=== PATIENT | female | born 1960 | race Caucasian/White ===

== ENCOUNTER → 2016-07-29 | Day surgery (SDC) | payer OTHER ==
[2016-07-28 15:38] VITALS: BMI 33.0
[~2016-07-29] VITALS: Ht 167.6 cm; Wt 93.6 kg
[~2016-07-29] MED LIST: CETI10TA84 PO; DIPH-416 PO; ESOM20CA PO; HYOS0.1255 PO; LIDOCAINE HCL 2% 2 ML VIAL (20MG/ML) ONE; MULT-506 PO; ONDANSETRON INJ 2 MG/ML 2 ML VIAL IV PRN; PROPOFOL IV EMULSION 10 MG/ML 20 ML VIAL IV ONE; SOLI10TA2 PO; TRAZ100T29 PO; VNTHFA/IN INH
[2016-07-29 10:11] VITALS: Ht 167.6 cm; Wt 93.6 kg
[2016-07-29 10:19] VITALS: TEMP 36.6
--- NOTE | 2016-07-29 10:33 | Endo History and Physical ---
History & Physical Date of Service: Jul 29, 2016. Chief Complaint: Family Hx colon Ca Referring Physician: Dr. Sharpe History of Present Illness Family history of colon cancer (father close to age 60) for a screening colonoscopy today. Past Surgical History Hx Cardiac Surgery: No Hx Internal Defibrillator: No Hx Pacemaker: No Hx Abdominal Surgery: Yes (D&E) Hx of Implantable Prosthesis: No Hx Post-Op Nausea and Vomiting: No Hx Cancer Surgery: No Hx Thoracic Surgery: No Hx Orthopedic: No Hx Urinary Tract Surgery: No Family History Colon CA Social History Smoking Status: Never Smoker Hx Substance Use: No Hx Alcohol Use: Yes (SOCIAL) Allergies Coded Allergies: Flu Virus Vaccine (Verified Allergy, Severe, RASH AND DIFFICULTY BREATHING , 07/28/16) Latex1 -Allergic Contact Dermititis (Verified Allergy, Unknown, REDNESS AND RASH, 07/28/16) Uncoded Allergies: RUM- HIVES (Allergy, Unknown, 08/17/02) Current Medications Reported Home Medications Medications Dose Route/Sig Max Daily Dose Days Date Category Nexium (Esomeprazole Magnesium) 20 Mg Capcr 2 Tab PO QAM 07/28/16 Reported Multivitamin (Multivitamins) Tab 1 Tab PO DAILY 07/28/16 Reported Ventolin Hfa (Albuterol) 200 Puffs/16797 Mcg Aers 2-4 Puffs INH Q6H PRN 07/28/16 Reported Zyrtec (Cetirizine HCl) 10 Mg Tab 10 Mg PO DAILY PRN 07/28/16 Reported Lomotil (Diphenoxylate HCl/Atropine) Tab 1 Tab PO UD PRN 07/28/16 Reported Levsin (Hyoscyamine Sulfate) 0.125 Mg Tab 0.125 Mg PO PRN PRN 07/28/16 Reported Trazodone (Trazodone HCl) 100 Mg Tab 150 Mg PO HS 07/28/16 Reported Vesicare (Solifenacin) 10 Mg Tab 10 Mg PO QAM 07/28/16 Reported Vital Signs Weight (Kilograms): 93.64 Height (Feet): 5 Height (Inches): 6 Date Time Temp Pulse Resp B/P Pulse Ox O2 Delivery O2 Flow Rate FiO2 07/29/16 10:19 36.6 83 18 120/71 97 Room Air Physical Exam General Appearance: no apparent distress Respiratory/Chest: Auscultation: breath sounds normal Cardiovascular: Heart Auscultation: RRR Abdomen: Inspection & Palpation: soft Assessment and Plan Evaluation for colon polyps in a patient with a 1st degree relative with colon cancer around age 60. We have discussed the risks to include bleeding, infection , perforation, pain, missed polyps, and aspiration.
--- NOTE | 2016-07-29 11:01 | Discharge Instructions ---
Endoscopy Patient Instructions Date / Procedure(s) Performed Jul 29, 2016. Colonoscopy Allergy Information Coded Allergies: Flu Virus Vaccine (Verified Allergy, Severe, RASH AND DIFFICULTY BREATHING , 07/28/16) Latex1 -Allergic Contact Dermititis (Verified Allergy, Unknown, REDNESS AND RASH, 07/28/16) Uncoded Allergies: RUM- HIVES (Allergy, Unknown, 08/17/02) Discharge Date / Findings Jul 29, 2016. Internal Hemorrhoids Medication Instructions Reported Home Medications Medications Dose Route/Sig Max Daily Dose Days Date Category Nexium (Esomeprazole Magnesium) 20 Mg Capcr 2 Tab PO QAM 07/28/16 Reported Multivitamin (Multivitamins) Tab 1 Tab PO DAILY 07/28/16 Reported Ventolin Hfa (Albuterol) 200 Puffs/05012 Mcg Aers 2-4 Puffs INH Q6H PRN 07/28/16 Reported Zyrtec (Cetirizine HCl) 10 Mg Tab 10 Mg PO DAILY PRN 07/28/16 Reported Lomotil (Diphenoxylate HCl/Atropine) Tab 1 Tab PO UD PRN 07/28/16 Reported Levsin (Hyoscyamine Sulfate) 0.125 Mg Tab 0.125 Mg PO PRN PRN 07/28/16 Reported Trazodone (Trazodone HCl) 100 Mg Tab 150 Mg PO HS 07/28/16 Reported Vesicare (Solifenacin) 10 Mg Tab 10 Mg PO QAM 07/28/16 Reported Provider Instructions Activity Restrictions - No exercising or heavy lifting for 24 hours. - Do not drink alcohol the day of the procedure. - Do not drive a car or operate machinery until the day after the procedure. - Do not make any important decisions or sign important papers in 24 hours after the procedure. Following Day: - Return to full activity which may include returning to work/school. Diet Start your diet with liquids and light foods (jello, soup, juice, toast). Then eat your usual diet if not nauseated. Treatment For Common After Affects For mild abdominal pain, bloating, or excessive gas: - Rest - Eat lightly - Lie on right side Follow-Up Information Follow-up with Dr. Sharpe as scheduled Repeat colonoscopy in 5 years Anesthesia Information What You Should Know You have had a procedure that required some medicine to reduce anxiety and discomfort. This treatment is called moderate sedation. After receiving the treatment, you may be sleepy, but you will be able to breathe on your own. The effects of the treatment may last for several hours. Follow these instructions along with Activity/Diet recommendations noted above: * Do NOT do anything where dizziness or clumsiness would be dangerous. * Rest quietly at home today, then you can be up and about tomorrow. * Have a responsible person stay with you the rest of today. * You may have had an I.V. today. If so, you may take the dressing off later today. Recommendations Call your doctor if: * Trouble breathing * Continuous vomiting for more than 24 hours * Temperature above 101 degrees * Severe abdominal pain or bloating * Pain not relieved by pain medicine ordered * There is increased drainage or redness from any incision * A large amount of rectal bleeding greater than 2-3 tablespoons. (If you had a polyp/s removed or have hemorrhoids, a small amount of blood - from the rectum is to be expected.) * You have any unanswered questions or concerns. IN THE EVENT OF A SERIOUS EMERGENCY, GO TO THE NEAREST EMERGENCY ROOM Your discharge instructions were prepared by provider Karan Carter. Patient Instructions Signature Page Ileana Jimenez Patient (or Guardian) Signature/Date: I have read and understand the instructions given to me by my caregivers. Caregiver/RN/Doctor Signature/Date: The above-named patient and/or guardian has received patient instructions on this date. + Original Patient Signature Page (only) stays with chart. Please make copy for patient.
--- NOTE | 2016-07-29 11:01 | GI REPORT ---
Procedure Date: 07/29/2016 10:37 AM Procedure: Colonoscopy Indications: Screening in patient at increased risk: Family history of 1st-degree relative with colorectal cancer Medicines: Monitored Anesthesia Care Complications: No immediate complications. Estimated blood loss: Minimal. Estimated Blood Loss: Estimated blood loss was minimal. Procedure: Pre-Anesthesia Assessment: - Prior to the procedure, a History and Physical was performed, and patient medications, allergies and sensitivities were reviewed. The patient's tolerance of previous anesthesia was reviewed. - The risks and benefits of the procedure and the sedation options and risks were discussed with the patient. All questions were answered and informed consent was obtained. - Patient identification and proposed procedure were verified prior to the procedure by the physician, the nurse and the convalescent sitter. The procedure was verified in the procedure room. - Pre-procedure physical examination revealed no contraindications to sedation. - ASA Grade Assessment: II - A patient with mild systemic disease. - After reviewing the risks and benefits, the patient was deemed in satisfactory condition to undergo the procedure. - The anesthesia plan was to use monitored anesthesia care (MAC). - Immediately prior to administration of medications, the patient was re-assessed for adequacy to receive sedatives. - The heart rate, respiratory rate, oxygen saturations, blood pressure, adequacy of pulmonary ventilation, and response to care were monitored throughout the procedure. - The physical status of the patient was re-assessed after the procedure. After I obtained informed consent, the scope was passed under direct vision. Throughout the procedure, the patient's blood pressure, pulse, and oxygen saturations were monitored continuously. The scope was introduced through the anus and advanced to the terminal ileum. The colonoscopy was performed without difficulty. The patient tolerated the procedure well. The quality of the bowel preparation was adequate to identify polyps 6 mm and larger in size. Findings: The perianal and digital rectal examinations were normal. Pertinent negatives include normal sphincter tone. The terminal ileum appeared normal. Normal cecal retroflexion Internal hemorrhoids were found during retroflexion. The hemorrhoids were mild. The exam was otherwise without abnormality. Impression: - The examined portion of the ileum was normal. - Internal hemorrhoids. - The examination was otherwise normal. Recommendation: - Discharge patient to home (ambulatory). - Advance diet as tolerated today. - Repeat colonoscopy in 5 years for screening purposes. - Return to GI office PRN. Karan Carter D.O. Karan Carter DO 07/29/2016 11:00:11 AM This report has been signed electronically. Note Initiated On: 07/29/2016 10:37 AM
[2016-07-29 11:33] VITALS: BP 112/77; PULSE 77; O2SAT 98
--- NOTE | 2016-07-29 11:55 | Anesthesiology Progress Note ---
Anesthesia Post Op Note Date & Time Jul 29, 2016 at 11:55 Vital Signs Pain Intensity: 0 Vital Signs Past 12 Hours Date Time Temp Pulse Resp B/P Pulse Ox O2 Delivery O2 Flow Rate FiO2 07/29/16 11:33 77 20 112/77 98 Room Air 07/29/16 11:18 79 18 110/70 97 Room Air 07/29/16 11:03 78 18 105/59 98 Room Air 07/29/16 10:19 36.6 83 18 120/71 97 Room Air Notes Mental Status: alert / awake / arousable, participated in evaluation Pt Amnestic to Procedure: Yes Nausea / Vomiting: adequately controlled Pain: adequately controlled Airway Patency, RR, SpO2: stable & adequate BP & HR: stable & adequate Hydration State: stable & adequate Anesthetic Complications: no major complications apparent
== END | disposition home or self-care (01) ==
LOC: C.GI 09:53
PROVIDERS: ATTEND Internal Medicine Gastroenterology
DX: Z12.11 Encounter for screening for malignant neoplasm of colon (principal); K64.8 Other hemorrhoids; Z80.0 Family history of malignant neoplasm of digestive organs; J45.909 Unspecified asthma, uncomplicated; Z98.890 Other specified postprocedural states; Z91.040 Latex allergy status; Z68.33 Body mass index [BMI] 33.0-33.9, adult

== ENCOUNTER → 2016-12-14 | Outpatient (CLI) | payer OTHER ==
[~2016-12-14] MED LIST changes: -LIDOCAINE HCL 2% 2 ML VIAL (20MG/ML) ONE; -ONDANSETRON INJ 2 MG/ML 2 ML VIAL IV PRN; -PROPOFOL IV EMULSION 10 MG/ML 20 ML VIAL IV ONE
== END | disposition home or self-care (01) ==
LOC: C.PAPS 10:01
PROVIDERS: ATTEND Obstetrics & Gynecology
DX: N95.2 Postmenopausal atrophic vaginitis (principal)

== ENCOUNTER → 2017-07-02 | Outpatient (CLI) | payer OTHER ==
--- NOTE | 2017-07-06 13:37 | MAMMOGRAPHY REPORT ---
BILATERAL DIGITAL SCREENING MAMMOGRAM TOMOSYNTHESIS WITH CAD: 07/02/2017 CLINICAL HISTORY: Routine screening. Patient has no complaints. TECHNIQUE: Breast tomosynthesis in addition to standard 2D mammography was performed. Current study was also evaluated with a Computer Aided Detection (CAD) system. COMPARISON: Comparison is made to exams dated: 04/09/2016 mammogram, 03/19/2015 mammogram, 04/18/2014 mammogram, 03/30/2013 mammogram, 03/17/2012 mammogram, and 03/12/2011 mammogram - [facility] enter. BREAST COMPOSITION: The tissue of both breasts is heterogeneously dense, which may obscure small mas ses. FINDINGS: No suspicious masses, calcifications, or areas of architectural distortion are noted in ei ther breast. There has been no significant interval change compared to prior exams. Scattered bilater al benign-appearing calcifications are not significantly changed. IMPRESSION: ACR BI-RADS CATEGORY 2: BENIGN There is no mammographic evidence of malignancy. A 1 year screening mammogram is recommended. The pa tient will receive written notification of the results. Approximately 10% of breast cancers are not detected with mammography. A negative mammographic report should not delay biopsy if a clinically suggestive mass is present. Kira Briscoe M.D. /:07/02/2017 15:35:27 Immunochemist: Brianne WHEELER)(M), [facility] letter sent: Normal 1/2 BI-RADS Code: ACR BI-RADS Category 2: Benign
== END | disposition home or self-care (01) ==
LOC: C.MAMM 10:15
PROVIDERS: ATTEND Obstetrics & Gynecology
DX: Z12.31 Encounter for screening mammogram for malignant neoplasm of breast (principal)